=== PATIENT | male | born 1995 | race Caucasian/White ===

== ENCOUNTER 2022-06-06 07:49 | Emergency (ER) | payer OTHER ==
[~2022-06-06 07:49] MED LIST: DELSYM30 MG/5 ML PO; IBUPROFEN600 MG PO; TAMIFLU75 MG PO; ZOFRAN4 MG PO
[2022-06-06] MEDS ORDERED: ZOFRAN 4 MG TAB4 MG PO (09:19)
[2022-06-06] MEDS ORDERED: FLONASE 0.05% N16 GM (09:19)
== END 2022-06-06 09:29 | disposition home or self-care (01) ==
LOC: ER1 07:49
DX: R11.0 Nausea (principal); R09.81 Nasal congestion; R51.9 Headache, unspecified; R40.2410 Glasgow coma scale score 13-15, unspecified time; Z20.822 Contact with and (suspected) exposure to COVID-19
CPT/HCPCS: 99284; U0002